=== PATIENT | male | born 1940 | race Caucasian/White ===

== ENCOUNTER 2020-07-26 14:06 | Emergency (ER) | payer MEDICARE ==
[2020-07-26 15:51] LABS: ABSOLUTE EOSINOPHILS # (AUTO) 0.1 10^3/uL (0.0-0.6); ABSOLUTE LYMPHOCYTES (AUTO) 0.5 10^3/uL (0.5-4.7); ABSOLUTE MONOCYTES (AUTO) 0.8 10^3/uL (0.1-1.4); ABSOLUTE NEUT (AUTO) 6.1 10^3/uL (1.7-8.2); BASOPHILS % (AUTO) 0.2 % (0-2); EOSINOPHILS % (AUTO) 0.8 % (0-6); HEMATOCRIT 35.7 % (37.9-51.0); HEMOGLOBIN 11.9 g/dL (13.5-17.0); LYMPHOCYTES % (AUTO) 6.7 % (13-45); MEAN CORPUSCULAR HEMOGLOBIN 29.7 pg (27.0-33.4); MEAN CORPUSCULAR HGB CONC 33.4 g/dL (32.0-36.0); MEAN CORPUSCULAR VOLUME 89 fl (80-97); MONOCYTES % (AUTO) 11.1 % (3-13); PLATELET COUNT 296 10^3/uL (150-450); RED CELL DISTRIBUTION WIDTH 13.6 % (11.5-14.0); SEGMENTED NEUTROPHILS % (AUTO) 81.2 % (42-78); TOTAL CELLS COUNTED % (AUTO) 100 %; WHITE BLOOD COUNT 7.6 10^3/uL (4.0-10.5)
--- NOTE | 2020-07-26 15:59 | ER Document Report ---
ED Syncope and Near Syncope - General Chief Complaint: Syncope Time Seen by Provider: 07/26/20 15:47 Primary Care Provider: TREVOR VALLE MD [NO LOCAL MD] - Follow up as needed ELIZABETH SPENCER MD [Primary Care Provider] - Follow up as needed Mode of Arrival: Medic Notes: This 79-year-old man presents to the emergency department history of Parkinson's disease and syncope episodes in the past. Apparently he was hospitalized in [place] in May for syncope episodes. At that time a work-up was negative with CT scan and lab work. Family notes that the patient was taken off of his Parkinson medications at that time and told that he did not need them. He is ambulatory uses a walker. Presently he is alert and talkative. He does have some recollection of the episodes. According to the family they last 1 to 2 minutes and he has had a total of 4 episodes today. He is usually eyes are rolled back and there was some frothing from the mouth and then he comes around with no increase in sleepiness or unresponsiveness. There was no incontinence of urine or stool. - Related Data Allergies/Adverse Reactions: morphine Allergy (Verified 07/26/20 18:27) Home Medications: amlodipine, aspirin, atorvastatin, metformin, propanolol, ser traline Past Medical History - Social History Smoking Status: Unknown if Ever Smoked Family History: Reviewed & Not Pertinent - Past Medical History Cardiac Medical History: Reports: Hx Hypercholesterolemia, Hx Hypertension Endocrine Medical History: Reports: Hx Diabetes Mellitus Type 2 Psychiatric Medical History: Reports: Hx Depression Review of Systems - Review of Systems Notes: Constitutional: Negative for fever. HENT: Negative for sore throat. Eyes: Negative for visual changes. Cardiovascular: Negative for chest pain. Respiratory: Negative for shortness of breath. Gastrointestinal: Negative for abdominal pain, vomiting or diarrhea. Genitourinary: Negative for dysuria. Musculoskeletal: Negative for back pain. Skin: Negative for rash. Neurological: + Tremor 10 point ROS negative except as marked above and in HPI. Physical Exam - Vital signs Vitals: Pulse Resp BP Pulse Ox 96 19 121/66 97 07/26/20 14:11 07/26/20 14:11 07/26/20 14:11 07/26/20 14:11 - Notes Notes: PHYSICAL EXAMINATION: Physical Exam: General: Frail elderly male in no acute distress HEENT: NC/AT, pupils equal round and reactive to light, MM moist,nares clear, oropharynx clear, airway patent Neck: supple, no adenopathy, no masses. Good range of motion Lungs: clear, no wheezing, no rales no rhonchi CVS: Regular rate and rhythm no murmur gallop or rub Abdomen: Soft, active, nontender, no masses, no hepatosplenomegaly Ext: No edema, clubbing or cyanosis. Neuro: Alert and responsive, moving all 4 extremities on command, cranial nerves intact, diffuse tremors upper and lower extremity rhythmatic Skin: Intact no open lesions, no rash PSYCH: Normal mood, normal affect. Course - Vital Signs Vital signs: Temp Pulse Resp BP Pulse Ox 100.0 F 100 18 121/63 100 07/26/20 21:50 07/26/20 21:50 07/26/20 21:50 07/26/20 21:50 07/26/20 21:50 - Laboratory Results Result Diagrams: 07/26/20 14:50 07/26/20 14:50 Laboratory Results Interpreted: 07/26/20 07/26/20 07/26/20 14:50 14:50 17:05 RBC 4.00 L Hgb 11.9 L Hct 35.7 L Lymph % (Auto) 6.7 L Seg Neutrophils % 81.2 H Sodium 130.6 L Potassium 5.8 H Chloride 96 L Creatinine 1.53 H Est GFR ( Amer) 54 L Est GFR (MDRD) Non-Af 44 L Glucose 161 H Creatine Kinase 41 L Urine Protein 30 H Critical Laboratory Results Reviewed: No Critical Results - Radiology Results Critical Radiology Results Reviewed: No Critical Results - EKG Interpretation by Sd Rate: Normal - EKG interpreted by Dr. Shell: Normal sinus rhythm, rate 85, CA interval 208 ms, QT interval 384 ms, left axis deviation, no acute ST or T wave abnormalities, no ischemic findings, there is no old EKG for comparison, Interpretation Abnormal EKG Discharge - Discharge Clinical Impression: Parkinsons disease, Frailty syndrome in geriatric patient Syncope Qualifiers: Syncope type: unspecified Qualified Code(s): R55 - Syncope and collapse Condition: Good Disposition: HOME, SELF-CARE Instructions: Parkinson's Disease ([facility]), Syncopal Episode ([facility]) Additional Instructions: You are seen in the emergency department today with episodes of passing out. 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 I am referring you to a neurologist to evaluate both the episodes of passing out and your Parkinson's disease and the need for treatment. If you are having recurrent symptoms or worsening condition you may return to the emergency department for further evaluation and treatment. You were also found to be mildly dehydrated and given IV fluids. Please push your water intake, at least 1 L daily. HOME CARE INSTRUCTIONS & INFORMATION: Thank you for choosing us for your medical needs. We hope you're satisfied with the care you received. After you leave, you must properly care for your problem and, at the same time, observe its progress. Any condition can change. Some illnesses can change rapidly over hours or days. If your condition worsens, return to the Emergency Department or see your physician promptly. ABOUT YOUR X-RAYS AND EKG'S: If you had an EKG or X-rays taken, they have been read by the Emergency Physician. The X-rays and EKG's will also be read by a Radiologist or [employer] Maker [employer] Installer within 24 hours. If discrepancies are noted, you will be notified by telephone. Please be certain the ED has a correct telephone number & address where you can be reached. Also, realize that some fractures or abnormalities do not show up on initial X-rays. If your symptoms continue, see your physician. ABOUT YOUR LABORATORY TEST: If you had laboratory tests, the results have been reviewed by the Emergency Physician. Some test results (for example cultures) may not be available for several days. You will be contacted if any test result shows you need additional treatment. Please be certain the ED has a correct telephone number and address where you can be reached. ABOUT YOUR MEDICATIONS: You will receive instructions on how to take your medicine on the prescription label you receive. Additional information may be provided by the Pharmacy. If you have questions afterwards, call the ED for clarification or further instructions. Some prescribed medications may cause drowsiness. Do not perform tasks such as driving a car or operating machinery without consulting your Pharmacist. If you feel you need a refill of pain medication, your condition will need re-evaluation. Please do not call for a refill of any medication. ABOUT YOUR SIGNATURE: Signature of this document acknowledges to followin. Understanding that you received emergency treatment and that you may be released before al medical problems are known or treated. Please be certain the ED has a correct phone number & address where you can be reached. 2. Acknowledgement that you will arrange for follow-up care as recommended. 3. Authorization for the Emergency Physician to provide information to your follow-up Physician in order to maximize your care. AT ANY TIME, IF YOUR SYMPTOMS CHANGE SIGNIFICANTLY OR WORSEN OR YOU DEVELOP NEW SYMPTOMS, RETURN TO THE EMERGENCY DEPARTMENT IMMEDIATELY FOR RE-EVALUATION. OUR GOAL IS TO PROVIDE EXCELLENT MEDICAL CARE! WE HOPE THAT WE HAVE MET YOUR EXPECTATIONS DURING YOUR EMERGENCY DEPARTMENT VISIT AND THAT YOU FEEL YOU HAVE RECEIVED EXCELLENT CARE! Referrals: ELIZABETH SPENCER MD [Primary Care Provider] - Follow up as needed TREVOR VALLE MD [NO LOCAL MD] - Follow up as needed
[2020-07-26 16:08] LABS: ALBUMIN 4.2 g/dL (3.5-5.0); ALKALINE PHOSPHATASE 83 U/L (38-126); ANION GAP 12 (5-19); ASPARTATE AMINO TRANSFERASE 20 U/L (17-59); BILIRUBIN,DIRECT 0.2 mg/dL (0.0-0.4); BILIRUBIN,TOTAL 0.4 mg/dL (0.2-1.3); BLOOD UREA NITROGEN 16 mg/dL (7-20); CALCIUM 9.6 mg/dL (8.4-10.2); CARBON DIOXIDE 23 mmol/L (22-30); CHLORIDE 96 mmol/L (98-107); CREATINE KINASE 41 U/L (55-170); GLUCOSE 161 mg/dL (75-110); POTASSIUM 5.8 mmol/L (3.6-5.0); TOTAL PROTEIN 7.6 g/dL (6.3-8.2)
[2020-07-26 16:20] LABS: CREATINE KINASE MB 0.92 ng/mL (<4.55)
[2020-07-26 16:21] LABS: TROPONIN I < 0.012 ng/mL
--- NOTE | 2020-07-26 17:40 | RADIOLOGY REPORT (SQ) ---
EXAM DESCRIPTION: CT HEAD WITHOUT IMAGES COMPLETED DATE/TIME: 07/26/2020 2:08 pm REASON FOR STUDY: Syncope COMPARISON: None. TECHNIQUE: Axial images acquired through the brain without intravenous contrast. Images reviewed wi th bone, brain and subdural windows. Additional sagittal and coronal reconstructions were generated. Images stored on PACS. All CT scanners at this facility use dose modulation, iterative reconstruction, and/or weight based d osing when appropriate to reduce radiation dose to as low as reasonably achievable (ALARA). [facility]: Dose Right [facility]: CareDose [facility]: Dose Right [facility]: Teradose 4D [facility]: Smart Sparkbrowser RADIATION DOSE: CT Rad equipment meets quality standard of care and radiation dose reduction techniq ues were employed. CTDIvol: 49.0 mGy. DLP: 1009 mGy-cm. mGy. LIMITATIONS: None. FINDINGS: VENTRICLES: Prominent. CEREBRUM: No masses. No hemorrhage. No midline shift. Areas of low density in the white matter mos t likely due to chronic micro-vascular ischemic change. Focal hypoattenuation left occipital lobe ma y reflect chronic infarct. No evidence for acute infarction. CEREBELLUM: No masses. No hemorrhage. No alteration of density. No evidence for acute infarction. EXTRAAXIAL SPACES: Mild age-related involutional change. No fluid collections. No masses. ORBITS AND GLOBE: No intra- or extraconal masses. Normal contour of globe without masses. CALVARIUM: No fracture. PARANASAL SINUSES: No fluid or mucosal thickening. SOFT TISSUES: No mass or hematoma. OTHER: No other significant finding. IMPRESSION: 1. Mild chronic small vessel ischemic changes with diffuse parenchymal atrophy. 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 No definite acute intracranial abnormality. If there is persistent concern for acute ischemia, MRI could be performed. EVIDENCE OF ACUTE STROKE: NO. TECHNICAL DOCUMENTATION: JOB ID: [id number] Quality ID # [id number]: Final reports with documentation of one or more dose reduction techniques (e.g., Au tomated exposure control, adjustment of the mA and/or kV according to patient size, use of iterative reconstruction technique) 2010 [employer]- All Rights Reserved Reading location - IP/workstation name: [email or web address]
[2020-07-26 17:44] LABS: APPEARANCE,URINE CLEAR; BILIRUBIN,URINE NEGATIVE (NEGATIVE); COLOR,URINE YELLOW; GLUCOSE, URINE NEGATIVE (NEGATIVE); KETONES,URINE NEGATIVE (NEGATIVE); LEUKOCYTE ESTERASE,URINE NEGATIVE (NEGATIVE); NITRITE,URINE NEGATIVE (NEGATIVE); PROTEIN,URINE 30 mg/dL (NEGATIVE); URINE SPECIFIC GRAVITY 1.013; UROBILINOGEN,URINE NEGATIVE mg/dL (<2.0)
[2020-07-26] MEDS ORDERED: NORMAL SALINE 500 ML IV ONE (19:28)
--- NOTE | 2020-07-26 20:34 | RADIOLOGY REPORT (SQ) ---
EXAM DESCRIPTION: Site: CHEST SINGLE VIEW RP: XR CHEST 1 VIEW CLINICAL HISTORY: 79 years Male; Shortness of breath; COMPARISON: None. FINDINGS: Lungs: Lungs are clear, with no focal infiltrate, pneumothorax, or pleural effusion. Mediastinum: Mediastinum is within normal limits for this positioning. Bones: Bony structures are unremarkable. IMPRESSION: 1. No acute pulmonary findings.
[2020-07-26 22:00] VITALS: BP 121/63
--- NOTE | 2020-07-27 17:26 | EKG REPORT ---
SEVERITY:- ABNORMAL ECG - SINUS RHYTHM LEFT BUNDLE BRANCH BLOCK : Confirmed by: Zakiya Gabriel MD 27-Jul-2020 17:25:34
== END 2020-07-26 22:00 | disposition home or self-care (01) ==
LOC: ER 14:06
DX: R55 Syncope and collapse (principal); R54 Age-related physical debility; G20 Parkinson's disease; E78.00 Pure hypercholesterolemia, unspecified; I10 Essential (primary) hypertension; E11.9 Type 2 diabetes mellitus without complications; Z79.82 Long term (current) use of aspirin; Z79.84 Long term (current) use of oral hypoglycemic drugs; Z88.6 Allergy status to analgesic agent
CPT/HCPCS: 93005; 99285; 96360; 36415; 82553; 82550; 85025; 80053; 81001; 84484; 71045; 70450; 93010; J7040